=== PATIENT | female | born 1975 | race Hispanic/Latino ===

== ENCOUNTER 2017-10-18 19:18 | Emergency (ER) | payer OTHER ==
[~2017-10-18 19:18] MED LIST: [UNRECOGNIZED DRUG - CODE] PO
[2017-10-18] MEDS ORDERED: SODIUM CHLORIDE 0.9% 1000ML 1,000 ML IV ONE (19:57)
[2017-10-18] MEDS ORDERED: KETOROLAC TROMETHAMINE 30MG/ML ONE (19:57)
[2017-10-18 20:01] LABS: BASOPHILS % (AUTO) 0.6 % (0.0-5.0); EOSINOPHILS % (AUTO) 0.6 % (0.0-8.0); HEMATOCRIT 38.6 % (36-48); LYMPHOCYTES % (AUTO) 8.1 % (21.0-51.0); MEAN CORPUSCULAR HEMOGLOBIN 31.6 pg (27.0-33.0); MEAN CORPUSCULAR HGB CONC 34.5 g/dL (32.0-36.0); MEAN CORPUSCULAR VOLUME 91.7 fL (79-99); MONOCYTES % (AUTO) 10.8 % (3.0-13.0); NEUTROPHILS % (AUTO) 79.9 % (40.0-77.0); PLATELET COUNT (AUTO) 351 K/uL (130-400); RED BLOOD CELL COUNT(AUTO) 4.21 MIL/uL (4.00-5.50); RED CELL DISTRIBUTION WIDTH 12.8 % (11.0-15.5); WHITE BLOOD COUNT (AUTO) 15.4 K/uL (4.8-10.8)
[2017-10-18 21:21] LABS: CREATININE 0.9 mg/dL (0.5-1.5)
[2017-10-18 21:26] LABS: ALBUMIN 3.6 g/dL (3.5-5.0); BILIRUBIN,TOTAL 0.5 mg/dL (0.2-1.0); TOTAL PROTEIN, SERUM 7.8 g/dL (6.0-8.3)
[2017-10-18 21:29] LABS: APPEARANCE,URINE Clear (CLEAR); BILIRUBIN,URINE Small (NEGATIVE); COLOR,URINE Orange (YELLOW); GLUCOSE, URINE (UA) Negative (NEGATIVE); KETONES,URINE Negative (NEGATIVE); LEUKOCYTE ESTERASE ,URINE Small (NEGATIVE); NITRATE,URINE Positive (NEGATIVE); OCCULT BLOOD,URINE Small (NEGATIVE); PROTEIN,URINE POS 1+ (NEGATIVE)
[2017-10-18 21:30] LABS: HCG,QUAL RESULT NEGATIVE (NEGATIVE)
[2017-10-18 21:38] LABS: BACTERIA,URINE Rare /HPF (None Seen); RBC,URINE 0-1 /HPF (0-1)
[2017-10-18] MEDS ORDERED: CEFTRIAXONE SODIUM 1 GM ONE (21:52)
[2017-10-18] MEDS ORDERED: ACETAMINOPHEN 325 MG TAB ONE (21:53)
[2017-10-18] MEDS ORDERED: LIDOCAINE HCL-MPF 1% 2ML VIAL ONE (21:56)
== END 2017-10-18 22:24 | disposition home or self-care (01) ==
LOC: EDH 19:18
DX: N10 Acute pyelonephritis (principal); Z72.0 Tobacco use; R10.31 Right lower quadrant pain
CPT/HCPCS: 36415; 80053; 81001; 81025; 85025; 96361; 96372; 96374; 99285; J0696; J1885; J3490; J7030